=== PATIENT | male | born 1995 | race Caucasian/White ===

== ENCOUNTER 2024-05-24 06:23 | Day surgery (SDC) | payer MEDICAID ==
[~2024-05-24] VITALS: Ht 160 cm; Wt 85.3 kg
[2024-05-24 09:24] VITALS: O2SAT 96
[2024-05-24] MEDS ORDERED: LR 1,000 ML IV SCH (09:45)
[2024-05-24] MEDS ORDERED: HYDROmorphone 1 MG/ML INJ. CARTRIDGE IVP PRN (09:45)
[2024-05-24] MEDS ORDERED: METOCLOPRAMIDE HCL 10 MG/2 ML VIAL IVP PRN (09:45)
[2024-05-24] MEDS ORDERED: HYDROmorphone 2 MG/ML VIAL IVP PRN (09:45)
[2024-05-24] MEDS ORDERED: ONDANSETRON HCL 4 MG/2 ML VIAL ONE ×2 (10:45→12:05)
[2024-05-24] MEDS ORDERED: METOCLOPRAMIDE HCL 10 MG/2 ML VIAL ONE (10:45)
[2024-05-24] MEDS ORDERED: MIDAZOLAM HCL 5 MG/ML VIAL (VERSED) IV ONE (10:45)
[2024-05-24] MEDS ORDERED: LR 1,000 ML IV.SOLN IV ONE (10:45)
[2024-05-24] MEDS ORDERED: NS IRRIG SOLN 1000 ML IR ONE (10:45)
[2024-05-24] MEDS ORDERED: KETOROLAC TROMETHAMINE 30 MG VIAL ONE (10:45)
[2024-05-24] MEDS ORDERED: PROPOFOL 200MG/ 20ML VIAL (DIPRIVAN) IV ONE (10:45)
[2024-05-24] MEDS ORDERED: SEVOFLURANE 15 MIN GAS INH ONE (10:45)
[2024-05-24] MEDS ORDERED: WATER FOR IRRIGATION,STERILE 1,000 ML IRRIG.SOLN IR ONE (10:45)
[2024-05-24] MEDS ORDERED: fentaNYL CITRATE/PF 100 MCG/2 ML AMP ONE (10:45)
[2024-05-24] MEDS ORDERED: BUPIVACAINE /EPINEPHRINE/PF 0.25% 30 ML VIAL ONE (10:45)
[2024-05-24] MEDS ORDERED: SUCCINYLCHOLINE CHLORIDE 20 MG/ML(QUELICIN) ONE (10:45)
[2024-05-24] MEDS ORDERED: ROCURONIUM BROMIDE 10 MG/ML (ZEMURON) ONE (10:45)
[2024-05-24] MEDS: ONDANSETRON HCL 4 MG/2 ML VIAL IVP PRN (12:07)
[2024-05-24 13:31] VITALS: BP_SYST 119; PULSE 72; RESP 17
== END 2024-05-24 13:54 | disposition home or self-care (01) ==
LOC: SDS 06:23 → SMU 06:25 → SDS 13:54
PROVIDERS: ATTEND Otolaryngology
DX: J35.3 Hypertrophy of tonsils with hypertrophy of adenoids (principal); G47.33 Obstructive sleep apnea (adult) (pediatric); E66.01 Morbid (severe) obesity due to excess calories; Z68.33 Body mass index [BMI] 33.0-33.9, adult
CPT/HCPCS: 42821; 88304; J3490; J1885; J2765; J2250; J2405; J2704; J0330; J3010; J7120